=== PATIENT | female | born 1955 | race Two or more races ===

== ENCOUNTER 2024-01-17 12:09 | Emergency (ER) | payer OTHER ==
[~2024-01-17] VITALS: Ht 175.3 cm; Wt 97.1 kg
[2024-01-17 13:21] VITALS: BP 151/80; PULSE 109; RESP 18; TEMP 98.5; O2SAT 96
[2024-01-17] MEDS ORDERED: IBUP-1455 PO (14:05)
[2024-01-17] MEDS ORDERED: CYCL-837 PO (14:05)
== END 2024-01-17 14:14 | disposition home or self-care (01) ==
LOC: ER 12:09
DX: S13.4XXA Sprain of ligaments of cervical spine, initial encounter (principal); M43.6 Torticollis; Z88.0 Allergy status to penicillin; V89.2XXA Person injured in unspecified motor-vehicle accident, traffic, initial encounter; Y93.89 Activity, other specified; Y92.89 Other specified places as the place of occurrence of the external cause; Y99.8 Other external cause status